=== PATIENT | female | born 1975 | race Caucasian/White ===

== ENCOUNTER 2016-06-22 22:47 | Emergency (ER) | payer OTHER ==
[~2016-06-22] VITALS: Ht 160 cm; Wt 69.0 kg
[~2016-06-22 22:47] MED LIST: BUTA1CAP37 PO; FIORICET PO; IBUP-1542 PO; IBUP400T22 PO; ONDA4TAB8 PO; PREN1TAB49 PO; TRAM50TA2 PO
[2016-06-22 23:11] VITALS: Ht 160 cm; Wt 69.0 kg
[2016-06-23] MEDS ORDERED: KETOROLAC 15 MG INJ IV STA (01:09)
[2016-06-23] MEDS ORDERED: SOD CHLORIDE 0.9% 1,000 ML IV ONE (01:30)
[2016-06-23] MEDS ORDERED: DIPHENHYDRAMINE 50 MG INJ IV ONE (01:30)
[2016-06-23] MEDS ORDERED: METOCLOPRAMIDE 10 MG INJ IV ONE (01:30)
[2016-06-23 02:33] LABS: URINE BLOOD (Dip) POC 3+ (NEGATIVE)
[2016-06-23] MEDS ORDERED: FIORICET PO (02:52)
[2016-06-23] MEDS ORDERED: ONDA4TAB8 PO (02:53)
--- NOTE | 2016-06-23 02:55 | ERD ---
ER Documentation Chief Complaint Date/Time DATE: 06/23/16 TIME: 02:53 Chief Complaint HOLGUIN and congestion x 1 day 02/18 pain HPI Patient is a 40 year old female with a history of mgiraines who presents to the ED with headache. She states that this headache is similar to what she has had in the past, states that she gets headaches once to twice a month and usually relieved with excedrin or tylenol at home. She complains of left sided headache , photophobia and phonobia with nausea. Denies fever, chills, vomiting, abdominal pain. Denies trauma. Denies stating this is the worse headache of her life. Denies weakness, blurry vision or difficulty walking. Denies slurred speech or disorientation. Denies leg pain, swelling, recent travel or recent surgeries. States that she took tylenol this morning which did not help with ehr symptoms. ROS All systems reviewed and are negative except as per history of present illness. Medications Home Meds Active Scripts Ondansetron Hcl* (Zofran*) 4 Mg Tablet, 4 MG PO Q6H for NAUSEA AND/OR VOMITING, #30 TAB Prov:NIRMALA OSEGUERA PA-C 06/23/16 Acetamin/Butalbital/Caffeine* (Fioricet*) [id number] Tab, 1 TAB PO Q6H Y for PAIN, #30 TAB Prov:NIRMALA OSEGUERA PA-C 06/23/16 Ondansetron Hcl* (Zofran*) 4 Mg Tablet, 4 MG PO Q6H for NAUSEA AND/OR VOMITING, #30 TAB Prov:ELY HEIN PA-C 12/19/15 Acetamin/Butalbital/Caffeine* (Fioricet*) 1 Tab Tab, 1 TAB PO Q4H Y for PAIN LEVEL 1-5, #20 TAB Prov:ELY HEIN PA-C 12/19/15 Yjehdmroewlcg-Qyjsdxwmei-Cpivbnij-Codeine* (Fioricet w/Codeine*) [id number] -30MG Cap, 1 CAP PO Q8 Y for PAIN LEVEL 1-5, #10 CAP Prov:JAVI LUNDBERG 03/03/15 Ibuprofen* (Motrin*) 400 Mg Tab, 400 MG PO Q6, #20 TAB Prov:JAVI LUNDBERG 03/03/15 Ibuprofen* (Ibuprofen*) 600 Mg Tablet, 600 MG PO Q6 for 30 Days, TAB Prov:ESME WOLF 01/10/15 Tramadol HCl (Tramadol HCl) 50 Mg Tab, 50 MG PO Q4 Y for PAIN, #20 TAB Prov:ESME WOLF 01/10/15 Reported Medications Vits W-Ca,Fe,Fa(<1MG) () 1 Tab Tablet, 1 TAB PO DAILY 05/11/11 Allergies Allergies: Coded Allergies: No Known Allergy (Unverified , 05/11/11) PMhx/Soc Medical and Surgical Hx: pt denies Medical Hx, pt denies Surgical Hx History of Surgery: Yes ( X1) Anesthesia Reaction: No Hx Neurological Disorder: No Hx Respiratory Disorders: No Hx Cardiac Disorders: No Hx Psychiatric Problems: No Hx Miscellaneous Medical Probl: Yes (HEADACHES- MIGRAINS) Hx Alcohol Use: No Hx Substance Use: No Hx Tobacco Use: No Physical Exam Vitals Vital Signs Date Time Temp Pulse Resp B/P Pulse Ox O2 Delivery O2 Flow Rate FiO2 06/23/16 03:18 98.5 54 16 101/55 98 Room Air 06/22/16 23:11 98.4 68 19 137/75 100 Physical Exam GENERAL: Well-developed, well-nourished female Appears in no acute distress. HEAD: Normocephalic, atraumatic. EYES: Pupils are equally reactive bilaterally. EOMs grossly intact. No conjunctival erythema. ENT: Moist mucous membranes. No uvula deviation. No kissing tonsils. No exudates. NECK: Supple. No lymphadenopathy or thyromegaly. No meningismus. negative kernig. negative brudinski. LUNG: Clear to auscultation bilaterally. No rhonchi, wheezing, rales or coarse breath sounds. HEART: Regular rate and rhythm. No murmurs, rubs or gallops. NEUROLOGIC: Alert and oriented. Moving all four extremities. 5/5 strength in all extremities. Normal speech. Steady gait. CN 2-12 intact. SKIN: Normal color. Warm and dry. No rashes or lesions. Capillary refill < 2 seconds Results 24 hrs Laboratory Tests Test 06/23/16 02:35 Bedside Urine Blood 3+ Bedside Urine Glucose (UA) Negative Bedside Urine Ketones (LAB) Negative Bedside Urine Leukocyte Esterase (L Negative Bedside Urine Nitrite (LAB) Negative Bedside Urine Protein (LAB) Negative Bedside Urine pH (LAB) 7.0 Current Medications Medications (Trade) Dose Ordered Sig/Agueda Route PRN Reason Start Time Stop Time Status Last Admin Dose Admin Ketorolac Tromethamine (Toradol) 15 mg ONCE STAT IV 06/23/16 01:09 06/23/16 03:24 DC 06/23/16 01:45 Diphenhydramine HCl 25 mg 25 mg ONCE ONCE IV 06/23/16 01:30 06/23/16 03:24 DC 06/23/16 01:44 Sodium Chloride (NS) 1,000 ml @ 1,000 mls/hr Q1H ONCE IV 06/23/16 01:30 06/23/16 03:24 DC 06/23/16 01:45 Metoclopramide HCl (Reglan) 5 mg ONCE ONCE IV 06/23/16 01:30 06/23/16 03:24 DC 06/23/16 01:44 Procedures/MDM ER COURSE: I kept the patient and/or family informed of laboratory and diagnostic imaging results throughout the emergency room course. MEDICATIONS: IV fluids, normal saline, toradol, benadryl and reglan. Tolerated medication well with no adverse reaction, while stating improvement in symptoms. LAB INTERPRETATION: Urine test was negative. MEDICAL DECISION MAKING: This is a 40 year old female who presents with headache. Vital signs were reviewed. Patient is afebrile. Patient is not hypoxic. Patient likely has migraine. She has a history of migrains and since this pain is simliar to what she has had in the past and examiantion was within normal limits, no CT scan was ordered. Risks versus benefits were discussed with patient who did not want a CT scan in the ED. Her pain was controlled prior to discharge, patient feels much better after migraine cocktail. Low suspicion for intracranial hemorrhage , meningitis, intracranial mass, concussion, temporal arteritis, stroke, elevated intracranial pressure, seizure. DISCHARGE: At this time, patient is stable for discharge and outpatient management with no new complaints during the ER course. Patient was sent home with fiorecet for pain and zofran for nausea Patient will be discharged home with instructions to recheck for new or worsening symptoms such as fever, nausea, weakness, LOC and to follow up with primary care in the next 1-2 days. Patient was advised to return to the ER for any new or worsening symptoms. Plan was discussed and patient and/or family understands and agrees. Home instructions were given. Departure Diagnosis: Primary Impression: Migraine Migraine type: unspecified Status migrainosus presence: without status migrainosus Intractability: not intractable Qualified Code: G43.909 - Migraine without status migrainosus, not intractable, unspecified migraine type Condition: Stable Patient Instructions: What Are Migraine and Tension Headaches? Referrals: TYLER PEIRCE (PCP) Additional Instructions: Call your primary care doctor TOMORROW for an appointment during the next 1-2 days.See the doctor sooner or return here if your condition worsens before your appointment time. NIRMALA OSEGUERA PA-C Jun 23, 2016 02:55
[2016-06-23 03:18] VITALS: BP 101/55; PULSE 54; RESP 16; TEMP 98.5
== END 2016-06-23 03:24 | disposition home or self-care (01) ==
LOC: FTE 22:47
DX: G43.909 Migraine, unspecified, not intractable, without status migrainosus (principal); R11.0 Nausea
CPT/HCPCS: 81003; 96374; 96375; J1200; J1885; J2765; J7030; Z7502